=== PATIENT | male | born 1990 ===

== ENCOUNTER → 2020-09-05 | Outpatient (CLI) | payer SELFPAY | END | disposition home or self-care (01) | LOC: LAB 15:44 → LAB SHORT 15:44 | DX: L73.9 Follicular disorder, unspecified (principal) | CPT/HCPCS: 87070; 87077; 87147; 87186; 87205 ==

== ENCOUNTER → 2023-10-15 | Outpatient (CLI) | payer SELFPAY ==
[2023-10-20 13:31] LABS: CALPROTECTIN,FECAL <5 ug/g (<=49)
== END ==
LOC: LAB 12:25 → LAB SHORT 12:25
PROVIDERS: Physician Assistant Medical
DX: R10.84 Generalized abdominal pain (principal)
CPT/HCPCS: 83993